=== PATIENT | female | born 1980 | race Caucasian/White ===

== ENCOUNTER 2018-10-27 01:17 | Emergency (ER) | payer SELFPAY ==
[2018-10-27 02:38] LABS: Hematocrit 32.9 % (30.3-42.9); Hemoglobin 11.1 gm/dl (10.1-14.3); Mean Corpuscular HGB Conc 34 % (30-34); Mean Corpuscular Volume 86 fl (79-97); Platelet Count 357 K/mm3 (140-440); Red Blood Count 3.86 M/mm3 (3.65-5.03); Red Cell Distribution Width 14.7 % (13.2-15.2)
[2018-10-27 02:39] LABS: Basophils % (Auto) 0.4 % (0.0-1.8); Eosinophils # (Auto) 0.2 K/mm3 (0.0-0.4); Eosinophils % (Auto) 3.7 % (0.0-4.3); Lymphocytes % (Auto) 32.9 % (13.4-35.0); Monocytes # (Auto) 0.5 K/mm3 (0.0-0.8); Monocytes % (Auto) 8.5 % (0.0-7.3)
[2018-10-27] MEDS ORDERED: MORPHINE IV ONE (07:10)
[2018-10-27] MEDS ORDERED: ZOFRAN IV ONE (07:10)
[2018-10-27] MEDS ORDERED: NACL 0.9% 1000 ML 1,000 ML IV ONE (07:10)
--- NOTE | 2018-10-27 07:30 | Ultrasound Report ---
PROCEDURE: US OB <= 14 WEEKS FETUS TECHNIQUE: Real-time transvaginal sonography of the uterus, placenta, amniotic fluid, adnexa, and fe tus was performed with image documentation. Measurements were obtained to determine age/size. HISTORY: post miscarriage bleeding and pain COMPARISONS: None . FINDINGS: There is no evidence of intrauterine or ectopic . Uterus measures 12 x 7 x 8 cm. Endometrium is thickened at 2.7 cm. There is a 14 mm echogenic area in the lower uterine segment which could be a fibroid. Right Ovary: 2.9 x 1.8 x 2.5 cm. There is a 15 mm complex cyst. . Left Ovary: 3.7 x 1.9 x 2.1 cm. There is a 1 cm cyst. . There is no free pelvic fluid. IMPRESSION: There is no evidence of intrauterine or ectopic . There is endometrial hyperplasia. There is no endometrial fluid. There is a 14 mm echogenic area in the lower uterine segment which could be a fibroid. There are small ovarian cysts bilaterally. There is no free pelvic fluid. This document is electronically signed by Kiran Buchanan MD., October 27 2018 04:19:06 AM ET
[2018-10-27 08:53] LABS: Alanine Aminotransferase 30 units/L (7-56); Albumin 3.8 g/dL (3.9-5); BUN/Creatinine Ratio 24; Blood Urea Nitrogen 12 mg/dL (7-17); Calcium 8.2 mg/dL (8.4-10.2); Hemolysis Index 8
[2018-10-27 08:54] LABS: Bilirubin,Direct < 0.2 mg/dL (0-0.2)
--- NOTE | 2018-10-27 09:38 | Emergency Department Report ---
ED Female HPI - General Chief complaint: Vaginal Bleeding Stated complaint: HEAVY BLEEDING Time Seen by Provider: 10/27/18 07:08 Source: patient, family Mode of arrival: Ambulatory Limitations: Language Barrier - History of Present Illness Initial comments: This is a 38-year-old Brazilian-speaking female. I have obtained the history in both Stat[place] and Brazilian. The patient complains of suprapubic discomfort. She's had a few blood clots and has used 3 pads. She presents with her daughter. Her daughter is concerned that she needs a "clean out". This is because she had a spontaneous miscarriage was treated and released from [facility] on 10/22/2018. She did well until she had some bleeding this morning. She denied fever or chills. This had no other supplemental symptoms. No dysuria or frequency or any discomfort on urination referred. MD Complaint: vaginal bleeding, pelvic pain -: Gradual Location: suprapubic Radiation: non-radiating Severity: moderate Quality: dull Consistency: intermittent Improves with: none Worsens with: none Are you Now?: No - Related Data Previous Rx's Medication Instructions Recorded Last Taken Type HYDROcodone/ACETAMINOPHEN [[place] 1 each PO Q6H PRN #7 tablet 10/27/18 Unknown Rx 5-325 Tablet] Allergies Allergy/AdvReac Type Severity Reaction Status Date / Time No Known Allergies Allergy Unverified 05/16/13 03:38 ED Review of Systems ROS: Stated complaint: HEAVY BLEEDING Other details as noted in HPI Constitutional: denies: chills, fever Eyes: denies: eye pain, eye discharge, vision change ENT: denies: ear pain, throat pain Respiratory: denies: cough, shortness of breath, wheezing Cardiovascular: denies: chest pain, palpitations Endocrine: no symptoms reported Gastrointestinal: as per HPI, abdominal pain. denies: nausea, diarrhea Genitourinary: as per HPI, abnormal menses. denies: urgency, dysuria, discharge Musculoskeletal: denies: back pain, joint swelling, arthralgia Skin: denies: rash, lesions Neurological: denies: headache, weakness, paresthesias Psychiatric: denies: anxiety, depression Hematological/Lymphatic: denies: easy bleeding, easy bruising ED Past Medical Hx - Past Medical History Previous Medical History?: No - Surgical History Past Surgical History?: Yes Hx Cholecystectomy: Yes - Social History Smoking Status: Never Smoker Substance Use Type: Alcohol - Medications Home Medications: Home Medications Medication Instructions Recorded Confirmed Last Taken Type HYDROcodone/ACETAMINOPHEN [[place] 1 each PO Q6H PRN #7 tablet 10/27/18 Unknown Rx 5-325 Tablet] ED Physical Exam - General Limitations: Language Barrier General appearance: alert, in no apparent distress - Head Head exam: Present: atraumatic, normocephalic - Eye Eye exam: Present: normal appearance - ENT ENT exam: Present: mucous membranes moist - Neck Neck exam: Present: normal inspection - Respiratory Respiratory exam: Present: normal lung sounds bilaterally. Absent: respiratory distress - Cardiovascular Cardiovascular Exam: Present: regular rate, normal rhythm. Absent: systolic murmur, diastolic murmur, rubs, gallop - GI/Abdominal GI/Abdominal exam: Present: soft, normal bowel sounds. Absent: distended, tenderness, guarding, rebound, rigid, organomegaly, mass, bruit, pulsatile mass, hernia - Extremities Exam Extremities exam: Present: normal inspection, normal capillary refill. Absent: pedal edema, joint swelling, calf tenderness - Back Exam Back exam: Present: normal inspection - Neurological Exam Neurological exam: Present: alert, oriented X3, CN II-XII intact. Absent: motor sensory deficit - Psychiatric Psychiatric exam: Present: normal affect, normal mood - Skin Skin exam: Present: warm, dry, intact, normal color. Absent: rash ED Course Vital Signs 10/27/18 10/27/18 10/27/18 01:20 04:41 05:00 Temperature 98.2 F Pulse Rate 104 H 96 H Respiratory 18 19 Rate Blood Pressure 143/88 143/58 Blood Pressure [Left] O2 Sat by Pulse 98 97 99 Oximetry 10/27/18 10/27/18 10/27/18 05:30 06:00 06:55 Temperature Pulse Rate 93 H 94 H Respiratory 21 19 18 Rate Blood Pressure 132/64 136/65 Blood Pressure [Left] O2 Sat by Pulse 97 97 99 Oximetry 10/27/18 10/27/18 10/27/18 07:28 08:00 08:30 Temperature Pulse Rate 90 Respiratory 18 Rate Blood Pressure 137/73 135/77 Blood Pressure 135/77 [Left] O2 Sat by Pulse 95 96 96 Oximetry 10/27/18 10/27/18 09:00 10:00 Temperature Pulse Rate Respiratory Rate Blood Pressure 133/75 135/71 Blood Pressure [Left] O2 Sat by Pulse 97 Oximetry ED Medical Decision Making - Lab Data Result diagrams: 10/27/18 01:56 10/27/18 08:19 Laboratory Results - last 24 hr 10/27/18 10/27/18 10/27/18 01:56 08:19 08:19 WBC 6.0 RBC 3.86 Hgb 11.1 Hct 32.9 MCV 86 MCH 29 MCHC 34 RDW 14.7 Plt Count 357 Lymph % (Auto) 32.9 [place] % (Auto) 8.5 H Eos % (Auto) 3.7 Baso % (Auto) 0.4 Lymph # 2.0 [place] # 0.5 Eos # 0.2 Baso # 0.0 Seg Neutrophils % 54.5 Seg Neutrophils # 3.3 Sodium 140 Potassium 3.5 L Chloride 107.6 H Carbon Dioxide 20 L Anion Gap 16 BUN 12 Creatinine 0.5 L Estimated GFR > 60 BUN/Creatinine Ratio 24 Glucose 106 H Calcium 8.2 L Total Bilirubin 0.40 Direct Bilirubin < 0.2 AST 22 ALT 30 Alkaline Phosphatase 64 Total Protein 6.2 L Albumin 3.8 L Albumin/Globulin Ratio 1.6 HCG, Quant 94.94 H Laboratory Results - last 24 hr 10/27/18 10/27/18 10/27/18 01:56 08:19 08:19 WBC 6.0 RBC 3.86 Hgb 11.1 Hct 32.9 MCV 86 MCH 29 MCHC 34 RDW 14.7 Plt Count 357 Lymph % (Auto) 32.9 [place] % (Auto) 8.5 H Eos % (Auto) 3.7 Baso % (Auto) 0.4 Lymph # 2.0 [place] # 0.5 Eos # 0.2 Baso # 0.0 Seg Neutrophils % 54.5 Seg Neutrophils # 3.3 PT 13.6 INR 0.98 APTT 20.5 L Sodium 140 Potassium 3.5 L Chloride 107.6 H Carbon Dioxide 20 L Anion Gap 16 BUN 12 Creatinine 0.5 L Estimated GFR > 60 BUN/Creatinine Ratio 24 Glucose 106 H Calcium 8.2 L Total Bilirubin 0.40 Direct Bilirubin < 0.2 AST 22 ALT 30 Alkaline Phosphatase 64 Total Protein 6.2 L Albumin 3.8 L Albumin/Globulin Ratio 1.6 HCG, Quant Blood Type Ord Rhogam Gestat Weeks 10/27/18 10/27/18 08:19 09:53 WBC RBC Hgb Hct MCV MCH MCHC RDW Plt Count Lymph % (Auto) [place] % (Auto) Eos % (Auto) Baso % (Auto) Lymph # [place] # Eos # Baso # Seg Neutrophils % Seg Neutrophils # PT INR APTT Sodium Potassium Chloride Carbon Dioxide Anion Gap BUN Creatinine Estimated GFR BUN/Creatinine Ratio Glucose Calcium Total Bilirubin Direct Bilirubin AST ALT Alkaline Phosphatase Total Protein Albumin Albumin/Globulin Ratio HCG, Quant 94.94 H Blood Type A POSITIVE Ord Rhogam Gestat Weeks Rh pos - Radiology Data Radiology results: report reviewed (ultrasound shows an empty uterus and no evidence of pelvic mass) Critical care attestation.: If time is entered above; I have spent that time in minutes in the direct care of this critically ill patient, excluding procedure time. ED Disposition Clinical Impression: Dysfunctional uterine bleeding Disposition: - TO HOME OR SELFCARE Is pt being admited?: No Does the pt Need Aspirin: No Condition: Stable Instructions: Spontaneous Miscarriage (ED) Additional Instructions: Follow-up with your usual maintenance trainer. Return any acute change or additional symptoms. Prescriptions: HYDROcodone/ACETAMINOPHEN [[place] 5-325 Tablet] 1 each PO Q6H PRN #7 tablet PRN Reason: pain Referrals: ALEXX ARREOLA MD [Primary Care Provider] - 2-3 Days usual, maintenance trainer [Other] - 2-3 Days Time of Disposition: 11:03
[2018-10-27 09:41] LABS: INR 0.98 (0.87-1.13); Partial Thromboplastin Time 20.5 Sec. (24.2-36.6)
[2018-10-27] MEDS ORDERED: NORCO 5/325 PO ONE (11:04)
[2018-10-27 11:42] VITALS: BP 134/77
--- NOTE | 2018-10-27 14:46 | Ultrasound Report ---
PROCEDURE: US OB <= 14 WEEKS FETUS TECHNIQUE: Real-time transabdominal sonography of the uterus, placenta, amniotic fluid, adnexa, and fetus was performed with image documentation. Measurements were obtained to determine age/size. M-mode Doppler was used to document heartbeat. ADDITIONAL GESTATION: None. HISTORY: post miscarriage bleeding and pain COMPARISONS: None . FINDINGS: There is no evidence of intrauterine or ectopic . Uterus measures 12 x 7 x 8 cm. Endometrium is thickened at 2.7 cm. There is a 14 mm echogenic area in the lower uterine segment which could be a fibroid. Right Ovary: 2.9 x 1.8 x 2.5 cm. There is a 15 mm complex cyst. . Left Ovary: 3.7 x 1.9 x 2.1 cm. There is a 1 cm cyst. . There is no free pelvic fluid. IMPRESSION: There is no evidence of intrauterine or ectopic . There is endometrial hyperplasia. There is no endometrial fluid. There is a 14 mm echogenic area in the lower uterine segment which could be a fibroid. There are small ovarian cysts bilaterally. There is no free pelvic fluid. This document is electronically signed by Kiran Buchanan MD., October 27 2018 04:18:30 AM ET
== END 2018-10-27 11:16 | disposition home or self-care (01) ==
LOC: ED 01:17
DX: N93.8 Other specified abnormal uterine and vaginal bleeding (principal); Z90.49 Acquired absence of other specified parts of digestive tract
CPT/HCPCS: 36415; 76801; 76817; 80048; 80076; 84702; 85025; 85610; 85730; 86900; 86901; 96374; 96375; 99284; J2270; J2405; J7030